=== PATIENT | female | born 1960 | race Hispanic/Latino ===

== ENCOUNTER → 2017-11-21 | Outpatient (CLI) | payer MEDICARE ==
[~2017-11-21] MED LIST: ACET-2743 PO; ACET1TAB25 PO; ALBU6.7H IH; ONDA8TAB5 PO; PANT40TA25 PO; SERT50TA12 PO; TRAM50TA4 PO
== END | disposition home or self-care (01) ==
LOC: RAH 11:29
PROVIDERS: ATTEND Internal Medicine Hematology & Oncology
DX: N13.30 Unspecified hydronephrosis (principal); N28.9 Disorder of kidney and ureter, unspecified
CPT/HCPCS: 76770

== ENCOUNTER 2017-11-28 07:31 | Day surgery (SDC) | payer MEDICARE ==
[2017-11-27 09:02] VITALS: BP 155/97
[2017-11-27 09:24] LABS: PARTIAL THROMBOPLASTIN TIME 23.5 SEC (26.3-35.5); PROTHROMBIN TIME 10.5 SEC (9.6-11.6)
[~2017-11-28] VITALS: Ht 153.7 cm; Wt 47.6 kg
[2017-11-28] VITALS (8 sets, daily range): BP systolic 140–170; BP diastolic 81–92
[2017-11-28 08:13] LABS: BASOPHILS % (AUTO) 0.9 % (0.0-5.0); EOSINOPHILS % (AUTO) 12.7 % (0.0-8.0); HEMATOCRIT 33.2 % (36-48); LYMPHOCYTES % (AUTO) 23.7 % (21.0-51.0); MEAN CORPUSCULAR HEMOGLOBIN 31.2 pg (27.0-33.0); MEAN CORPUSCULAR HGB CONC 33.5 g/dL (32.0-36.0); MONOCYTES % (AUTO) 7.8 % (3.0-13.0); NEUTROPHILS % (AUTO) 54.9 % (40.0-77.0); PLATELET COUNT (AUTO) 342 K/uL (130-400); RED BLOOD CELL COUNT(AUTO) 3.57 MIL/uL (4.00-5.50); RED CELL DISTRIBUTION WIDTH 16.8 % (11.0-15.5); WHITE BLOOD COUNT (AUTO) 4.2 K/uL (4.8-10.8)
[2017-11-28] MEDS ORDERED: SODIUM CHLORIDE 0.9% 1000ML 1,000 ML IV ONE (08:33)
[2017-11-28] MEDS ORDERED: LIDOCAINE HCL 2% 20ML ONE (08:48)
[2017-11-28] MEDS ORDERED: ISOVUE-300 100 ML VIAL IV ONE (08:48)
[2017-11-28 09:04] LABS: CREATININE 1.3 mg/dL (0.5-1.5); POTASSIUM 3.9 mmol/L (3.5-5.1)
[2017-11-28] MEDS ORDERED: ACETAMINOPHEN 325 MG TAB ONE (10:16)
== END 2017-11-28 13:10 | disposition home or self-care (01) ==
LOC: DAH 07:31
PROVIDERS: ATTEND Internal Medicine Hematology & Oncology
DX: N13.8 Other obstructive and reflux uropathy (principal); Z79.899 Other long term (current) drug therapy; D64.89 Other specified anemias; J44.9 Chronic obstructive pulmonary disease, unspecified; N13.39 Other hydronephrosis; Z85.41 Personal history of malignant neoplasm of cervix uteri; Z98.890 Other specified postprocedural states; Z79.891 Long term (current) use of opiate analgesic; Z80.3 Family history of malignant neoplasm of breast; Z83.3 Family history of diabetes mellitus; Z87.891 Personal history of nicotine dependence; M79.672 Pain in left foot
CPT/HCPCS: 10030; 36415 ×2; 50432; 80048; 85025; 85610; 85730; A4606; C1729; C1769; C1894; J3490; J7030; Q9967

== ENCOUNTER → 2018-06-17 | Outpatient (CLI) | payer MEDICARE ==
[~2018-06-17] MED LIST changes: +SODIUM CHLORIDE 0.9% 1000ML 1,000 ML IV ONE
[2018-06-17 09:45] VITALS: BP 140/90
[2018-06-17 10:08] LABS: INR 0.95 (0.85-1.15); PARTIAL THROMBOPLASTIN TIME 25.5 SEC (26.3-35.5)
[2018-06-17 12:29] LABS: HEMATOCRIT 33.4 % (36-48); MEAN CORPUSCULAR HEMOGLOBIN 31.1 pg (27.0-33.0); MEAN CORPUSCULAR HGB CONC 33.2 g/dL (32.0-36.0); MEAN CORPUSCULAR VOLUME 93.8 fL (79-99); PLATELET COUNT (AUTO) 416 K/uL (130-400); RED BLOOD CELL COUNT(AUTO) 3.57 MIL/uL (4.00-5.50); RED CELL DISTRIBUTION WIDTH 14.7 % (11.0-15.5); WHITE BLOOD COUNT (AUTO) 4.8 K/uL (4.8-10.8)
[2018-06-17 12:56] LABS: CREATININE 1.2 mg/dL (0.5-1.5); POTASSIUM 4.7 mmol/L (3.5-5.1)
== END | disposition home or self-care (01) ==
LOC: DAH 09:26 → EDSTATUS 12:30 → DAH 13:32
PROVIDERS: ATTEND Internal Medicine Hematology & Oncology
DX: T83.022A Displacement of nephrostomy catheter, initial encounter (principal); I10 Essential (primary) hypertension; J45.909 Unspecified asthma, uncomplicated; Z86.2 Personal history of diseases of the blood and blood-forming organs and certain disorders involving the immune mechanism; Z87.891 Personal history of nicotine dependence; Y92.89 Other specified places as the place of occurrence of the external cause; Y83.8 Other surgical procedures as the cause of abnormal reaction of the patient, or of later complication, without mention of misadventure at the time of the procedure
CPT/HCPCS: 36415; 76770; 80048; 85027; 85610; 85730; J7030

== ENCOUNTER → 2018-06-19 | Outpatient (CLI) | payer MEDICARE ==
[~2018-06-19] MED LIST changes: -SODIUM CHLORIDE 0.9% 1000ML 1,000 ML IV ONE
== END | disposition home or self-care (01) ==
LOC: RAH 09:32
PROVIDERS: ATTEND Family Medicine
DX: Z12.31 Encounter for screening mammogram for malignant neoplasm of breast (principal)
CPT/HCPCS: 77067

== ENCOUNTER 2018-07-26 03:40 | Emergency (ER) | payer OTHER, MEDICARE ==
[2018-07-26 04:32] LABS: BASOPHILS % (AUTO) 0.4 % (0.0-5.0); EOSINOPHILS % (AUTO) 1.8 % (0.0-8.0); HEMATOCRIT 30.8 % (36-48); LYMPHOCYTES % (AUTO) 5.1 % (21.0-51.0); MEAN CORPUSCULAR HEMOGLOBIN 31.9 pg (27.0-33.0); MEAN CORPUSCULAR HGB CONC 34.6 g/dL (32.0-36.0); MEAN CORPUSCULAR VOLUME 92.2 fL (79-99); MONOCYTES % (AUTO) 4.1 % (3.0-13.0); NEUTROPHILS % (AUTO) 88.6 % (40.0-77.0); PLATELET COUNT (AUTO) 262 K/uL (130-400); RED BLOOD CELL COUNT(AUTO) 3.34 MIL/uL (4.00-5.50); RED CELL DISTRIBUTION WIDTH 14.5 % (11.0-15.5); WHITE BLOOD COUNT (AUTO) 7.2 K/uL (4.8-10.8)
[2018-07-26 04:43] LABS: CREATININE 1.1 mg/dL (0.5-1.5); POTASSIUM 3.6 mmol/L (3.5-5.1)
[2018-07-26 04:48] LABS: ALBUMIN 2.9 g/dL (3.5-5.0); BILIRUBIN,TOTAL 0.3 mg/dL (0.2-1.0); TOTAL PROTEIN, SERUM 6.6 g/dL (6.0-8.3)
[2018-07-26] MEDS ORDERED: HYDROCODONE/ACETAMINOPHEN 10/325 MG TAB ONE (05:56)
[2018-07-26] MEDS ORDERED: FENTANYL CITRATE PF 50 MCG/1 ML 2ML VIAL ONE (07:31)
== END 2018-07-26 10:02 | disposition home or self-care (01) ==
LOC: EDH 03:40
DX: M54.42 Lumbago with sciatica, left side (principal); I10 Essential (primary) hypertension; J45.909 Unspecified asthma, uncomplicated; Z85.53 Personal history of malignant neoplasm of renal pelvis; Z87.891 Personal history of nicotine dependence
CPT/HCPCS: 36415; 72131; 73502; 73552; 80053; 85025; 96374; 99285; J3010

== ENCOUNTER 2020-11-20 06:52 | Day surgery (SDC) | payer OTHER, MEDICARE ==
[2020-11-15 10:57] LABS: BASOPHILS % (AUTO) 0.2 % (0.0-5.0); EOSINOPHILS % (AUTO) 0.1 % (0.0-8.0); HEMATOCRIT 33.7 % (36-48); LYMPHOCYTES % (AUTO) 8.9 % (21.0-51.0); MEAN CORPUSCULAR HEMOGLOBIN 28.2 pg (27.0-33.0); MEAN CORPUSCULAR HGB CONC 32.3 g/dL (32.0-36.0); MEAN CORPUSCULAR VOLUME 87.1 fL (79-99); MONOCYTES % (AUTO) 4.6 % (3.0-13.0); NEUTROPHILS % (AUTO) 85.8 % (40.0-77.0); PLATELET COUNT (AUTO) 355 K/uL (130-400); RED BLOOD CELL COUNT(AUTO) 3.87 MIL/uL (4.00-5.50); RED CELL DISTRIBUTION WIDTH 14.5 % (11.0-15.5)
[2020-11-15 11:13] LABS: ALBUMIN 3.1 g/dL (3.5-5.0); BILIRUBIN,TOTAL 0.1 mg/dL (0.2-1.0); CREATININE 1.1 mg/dL (0.5-1.5); POTASSIUM 4.3 mmol/L (3.5-5.1); TOTAL PROTEIN, SERUM 7.2 g/dL (6.0-8.3)
[2020-11-15 12:16] LABS: INR 0.91 (0.85-1.15)
[2020-11-15 12:18] LABS: PARTIAL THROMBOPLASTIN TIME 20.8 SEC (26.3-35.5)
[2020-11-17 10:02] VITALS: BP 157/83
[2020-11-20] VITALS (17 sets, daily range): BP systolic 129–154; BP diastolic 80–92
[~2020-11-20] VITALS: Ht 152.4 cm; Wt 61.2 kg
[~2020-11-20 06:52] MED LIST changes: -ACET-2743 PO; -ALBU6.7H IH; +GABA300C PO; -PANT40TA25 PO; +SERT-440 PO; -SERT50TA12 PO; +SODIUM CHLORIDE 0.9% 1000ML 1,000 ML IV SCH; -TRAM50TA4 PO
[2020-11-20] MEDS ORDERED: LACTATED RINGERS 1000ML 1,000 ML IV ONE (07:44)
[2020-11-20] MEDS ORDERED: LINA145C PO (08:35)
[2020-11-20] MEDS ORDERED: MIDAZOLAM HCL 1 MG/ML 2ML VIAL ONE (08:35)
[2020-11-20] MEDS ORDERED: ONDANSETRON HCL 4 MG/2 ML VIAL ONE (08:35)
[2020-11-20] MEDS ORDERED: DOCU100T9 PO (08:35)
[2020-11-20] MEDS ORDERED: METH4TAB16 PO (08:35)
[2020-11-20] MEDS ORDERED: LIDOCAINE PF 2% 5ML ABBOJECT ONE (08:35)
[2020-11-20] MEDS ORDERED: PANT40TA54 PO (08:35)
[2020-11-20] MEDS ORDERED: DEXAMETHASONE SOD PHOSPHATE 10MG/ML 1ML VIAL ONE (08:35)
[2020-11-20] MEDS ORDERED: ALBU0.63 IH (08:35)
[2020-11-20] MEDS: CEFAZOLIN SODIUM 1 GM VIAL ONE ×2 (08:36→09:04)
[2020-11-20] MEDS ORDERED: FENTANYL CITRATE PF 50 MCG/1 ML 2ML VIAL ONE (08:36)
[2020-11-20] MEDS ORDERED: PROPOFOL 10 MG/ML 20ML VIAL IV ONE (08:36)
[2020-11-20] MEDS ORDERED: MEPERIDINE-PF 25 MG/ML SYG ONE ×3 (08:38→10:52)
[2020-11-20] MEDS ORDERED: PHENYLEPHRINE HCL 10 MG/ML 1ML VIAL IV ONE (09:03)
[2020-12-01] MEDS ORDERED: CEFAZOLIN SODIUM 1 GM VIAL IVP SCH (06:00)
== END 2020-11-20 11:45 | disposition home or self-care (01) ==
LOC: DAH 06:52
PROVIDERS: ATTEND Student in an Organized Health Care Education/Training Program
DX: C76.42 Malignant neoplasm of left upper limb (principal); C76.1 Malignant neoplasm of thorax; J45.909 Unspecified asthma, uncomplicated; K21.9 Gastro-esophageal reflux disease without esophagitis; Z79.01 Long term (current) use of anticoagulants; Z79.899 Other long term (current) drug therapy; Z20.828 Contact with and (suspected) exposure to other viral communicable diseases
CPT/HCPCS: 11606; 36415; 71045; 80053; 85025; 85610; 85730; 93005; A4215; A4221; A4222; A4223; A4452; A4663; A4930; A6260; C9803; G0168; J0690; J1100; J2001; J2175 ×3; J2250; J2370; J2405; J2704; J3010; J7120 ×2; U0003

== ENCOUNTER → 2022-02-22 | Outpatient (CLI) | payer OTHER, MEDICARE ==
[~2022-02-22] MED LIST changes: +ACET-2079 PO; -ACET1TAB25 PO; +ALBU0.63 IH; +DOCU100T9 PO; +LINA145C PO; +METH4TAB16 PO; +PANT40TA54 PO; -SODIUM CHLORIDE 0.9% 1000ML 1,000 ML IV SCH
== END | disposition home or self-care (01) ==
LOC: RAH 13:56
PROVIDERS: ATTEND Family Medicine
DX: Z12.31 Encounter for screening mammogram for malignant neoplasm of breast (principal); N63.11 Unspecified lump in the right breast, upper outer quadrant
CPT/HCPCS: 77067

== ENCOUNTER → 2023-02-24 | Outpatient (CLI) | payer OTHER, MEDICARE | END | disposition home or self-care (01) | LOC: RAH 11:38 | PROVIDERS: ATTEND Family Medicine | DX: Z12.31 Encounter for screening mammogram for malignant neoplasm of breast (principal) | CPT/HCPCS: 77067 ==